=== PATIENT | female | born 1995 | race Caucasian/White ===

== ENCOUNTER 2021-01-10 05:01 | Inpatient (IN) | payer BC, MEDICAID ==
[2021-01-10] VITALS (47 sets, daily range): BP systolic 112–152; BP diastolic 71–101
[~2021-01-10] VITALS: Ht 165.1 cm; Wt 85.2 kg
--- NOTE | 2021-01-10 07:38 | History & Physical ---
History and Physical Date Seen by Provider: Jan 10, 2021 Time Seen by Provider: 07:36 This patient is a 25-year-old 3 para 0 aborta 2 female with gestational diabetes admitted at 38-2/7 weeks gestation for induction of labor. She has had no problems with this other than her diabetes to date. She denies rupture membranes or bleeding. Her GBS culture was negative. Allergies are none Medications are vitamins Medical social and surgical history is all per the antepartum record HEENT exam is normal Neck is supple no lymphadenopathy no thyromegaly Abdomen is gravid soft nontender nondistended Extremities show no clubbing cyanosis. There is no Homans' sign Pelvic exam is pending Assessment and plan 38+ week gestation with gestational diabetes admitted for induction of labor. We anticipate a vaginal delivery 38 weeks with gestational diabetes Allergies and Home Medications Patient Home Medication List Home Medication List Reviewed: Yes SHIRA COLE MD Jan 10, 2021 07:38
[2021-01-10] MEDS: D5 LR IV SOLUTION 1,000 ML IV SCH ×2 (08:30→16:24)
[2021-01-10] MEDS: OXYTOCIN PRE-MIX DRIP 500 ML IV SCH (08:30)
[2021-01-10] MEDS ORDERED: CITRIC ACID/SOB CIT (BICITRA) 30 ML UDC PO ONE (09:15)
[2021-01-10 09:19] LABS: BASOPHILS % (AUTO) 0 % (0-10); EOSINOPHILS # (AUTO) 0.1 10^3/uL (0.0-0.3); EOSINOPHILS % (AUTO) 1 % (0-10); HEMATOCRIT 38 % (35-52); HEMOGLOBIN 12.9 g/dL (11.5-16.0); LYMPHOCYTES # (AUTO) 1.5 10^3/uL (1.0-4.0); LYMPHOCYTES % (AUTO) 18 % (12-44); MEAN CORPUSCULAR HEMOGLOBIN 30 pg (25-34); MEAN CORPUSCULAR HGB CONC 34 g/dL (32-36); MEAN CORPUSCULAR VOLUME 87 fL (80-99); MEAN PLATELET VOLUME 10.4 fL (9.0-12.2); MONOCYTES # (AUTO) 0.7 10^3/uL (0.0-1.0); MONOCYTES % (AUTO) 9 % (0-12); NEUTROPHILS % (AUTO) 72 % (42-75); PLATELET COUNT 205 10^3/uL (130-400); WHITE BLOOD COUNT 8.4 10^3/uL (4.3-11.0)
[2021-01-11] VITALS (42 sets, daily range): BP systolic 96–152; BP diastolic 49–98
[2021-01-11] MEDS: D5 LR IV SOLUTION 1,000 ML IV SCH ×2 (01:05→08:30)
[2021-01-11] MEDS: OXYTOCIN PRE-MIX DRIP 500 ML IV SCH ×3 (06:03→19:47)
[2021-01-11] MEDS ORDERED: fentaNYL 2 mcg/ml BUPIVA 0.125 100 ML ONE (07:54)
[2021-01-11] MEDS ORDERED: fentaNYL INJ 100 MCG/2 ML AMP ONE ×2 (08:35→12:17)
[2021-01-11] MEDS ORDERED: BUPIVACAINE 0.25% 30 ML (SENSORCAINE) VIAL ONE (08:35)
--- NOTE | 2021-01-11 10:29 | Progress Note ---
Standard Progress Note Progress Notes/Assess & Plan Date Seen by a Provider: Jan 11, 2021 Time Seen by a Provider: 10:27 Progress/Assessment & Plan This patient is without complaint. She is on day 2 of a serial Pitocin induction of labor. She made some progress on Pitocin yesterday thinning out almost completely and showing good descent of the presenting part. After an hour at 40 milliunits/min of the Pitocin the Pitocin was halted in favor of resting through the night. Pitocin has been reinitiated this morning. Patient has experienced spontaneous rupture membranes. She is madi vigorously and now has an epidural Vital signs are stable. Patient is afebrile. monitor shows regular contractions and a normal heart rate pattern. Plan is for continued labor induction SHIRA COLE MD Jan 11, 2021 10:29
[2021-01-11] MEDS ORDERED: ONDANSETRON 4 MG/2 ML (SDV) Z0FRAN IV PRN (11:00)
[2021-01-11] MEDS ORDERED: METOCLOPRAMIDE INJ 10 MG/2 ML (REGLAN) IV PRN (11:00)
[2021-01-11] MEDS ORDERED: LACTATED RINGERS 1,000 ML IV SCH (11:00)
[2021-01-11] MEDS ORDERED: NALOXONE 0.4 MG/ML 1 ML (NARCAN) VIAL IV PRN ×2 (11:00)
[2021-01-11] MEDS ORDERED: diphenhydrAMINE 50 MG/ML INJ (BENADRYL) IV PRN (11:00)
[2021-01-11] MEDS ORDERED: EPIDURAL (fentaNYL 2 MCG/ML BUPIVA 0.125%)100 ML BAG EPI PRN (11:00)
[2021-01-11] MEDS ORDERED: FAMOTIDINE 20MG/2ML IV (PEPCID) ONE (11:39)
[2021-01-11] MEDS ORDERED: CITRIC ACID/SOB CIT (BICITRA) 30 ML UDC ONE (11:39)
--- NOTE | 2021-01-11 11:40 | Progress Note ---
Standard Progress Note Progress Notes/Assess & Plan Date Seen by a Provider: Jan 11, 2021 Time Seen by a Provider: 11:40 Progress/Assessment & Plan This patient is without complaint. She is on day 2 of a serial Pitocin induction of labor. She made some progress on Pitocin yesterday thinning out almost completely and showing good descent of the presenting part. After an hour at 40 milliunits/min of the Pitocin the Pitocin was halted in favor of resting through the night. Pitocin has been reinitiated this morning. Patient has experienced spontaneous rupture membranes. She is madi vigorously and now has an epidural Vital signs are stable. Patient is afebrile. monitor shows regular contractions and a normal heart rate pattern. Plan is for continued labor induction January 11, 2021 Patient is comfortable with epidural however she has had recurrent late decelerations. Pitocin has been halted and the monitor strip has improved. She has had 2 episodes of heart rate deceleration today already we have stopped the Pitocin and would favor proceeding with delivery. The patient agrees. SHIRA COLE MD Jan 11, 2021 11:40
[2021-01-11] MEDS ORDERED: ceFAZolin 2 GM IV Premixed 50 ML ONE (11:41)
[2021-01-11] MEDS ORDERED: metroNIDAZOLE 500MG/100ML IVPB 100 ML ONE (11:41)
[2021-01-11] MEDS ORDERED: ceFAZolin INJECTION 2,000 MG in WATER (STERILE) FOR INJECTION 10 ML IV NR (11:45)
[2021-01-11] MEDS ORDERED: metroNIDAZOLE 500MG/100ML IVPB 100 ML IV NR (11:45)
[2021-01-11] MEDS ORDERED: OXYC-556 PO (11:50)
[2021-01-11] MEDS ORDERED: DOCU-143 PO (11:50)
[2021-01-11] MEDS ORDERED: IBUP-1780 PO (11:50)
--- NOTE | 2021-01-11 11:52 | Discharge Inst-Surgical ---
Discharge Inst-Surgical Depart Medication/Instructions New, Converted or Re-Newed RX: RX on Chart Consults/Follow Up Patient Instructions: As directed Orders & Referrals Follow Up Appt: RTC On Wednesday, January 17, 2021 at 9:30 AM for incision check. Call to make follow up appt. for patient in 4 weeks. Wound Care: Remove trina, apply benzoin and steri strips. Activity Per routine post instructions. Please call in RX to patient pharmacy. Diet as tolerated Patient may shower or tub bathe as desired. Continue home meds Activity Activity as Tolerated: No Diet Discharge Diet: No Restrictions SHIRA COLE MD Jan 11, 2021 11:51
[2021-01-11] MEDS ORDERED: CITRIC ACID/SOB CIT (BICITRA) 30 ML UDC PO ONE (12:00)
[2021-01-11] MEDS ORDERED: LACTATED RINGERS 1,000 ML IV PRN ×2 (12:00)
[2021-01-11] MEDS ORDERED: METOCLOPRAMIDE INJ 10 MG/2 ML (REGLAN) IV ONE (12:00)
[2021-01-11] MEDS ORDERED: BUPIVACAINE 0.5% 30 ML (SENSORCAINE) VIAL ONE (12:17)
[2021-01-11] MEDS ORDERED: LIDOCAINE PF 2% 5 ML (XYLOCAINE) VIAL ONE (12:17)
[2021-01-11] MEDS ORDERED: OXYTOCIN PRE-MIX DRIP 1,000 ML IV ONE (12:24)
[2021-01-11] MEDS ORDERED: MEASLES,MUMPS,RUBELLA 1 EA INJ SC ONE (15:30)
[2021-01-11] MEDS ORDERED: ONDANSETRON 4 MG/2 ML (SDV) Z0FRAN IVP PRN (15:30)
[2021-01-11] MEDS ORDERED: fentaNYL INJ 100 MCG/2 ML AMP IVP PRN (15:30)
[2021-01-11] MEDS ORDERED: TETANUS,DIPTH,PERTUSS P/F (BOOSTRIX) 0.5 ML VIAL IM ONE (15:30)
[2021-01-11] MEDS ORDERED: D5 LR IV SOLUTION 1,000 ML IV SCH (15:30)
[2021-01-11] MEDS: KETOROLAC 30 MG/ML VIAL IVP PRN ×2 (16:11→21:52)
[2021-01-11] MEDS: oxyCODONE/APAP 10/325MG (PERCOCET 10) TABLET PO PRN ×2 (16:54→23:07)
--- NOTE | 2021-01-11 17:40 | OPERATIVE REPORT ---
DATE OF SERVICE: 01/11/2021 PREOPERATIVE DIAGNOSES: 1. A 38-week with gestational diabetes in labor with nonreassuring heart rate pattern and failure to progress. 2. Pigmented lesion on the right mons. POSTOPERATIVE DIAGNOSES: 1. A 38-week with gestational diabetes in labor with nonreassuring heart rate pattern and failure to progress. 2. Pigmented lesion on the right mons. OPERATIVE PROCEDURES: 1. Primary low transverse delivery of a viable female with Apgars of 9 and 9 at 1 and 5 minutes respectively, weight of 7 pounds 5 ounces. Cord blood pH of 7.29 and a time of 12:40. 2. Removal of a pigmented lesion. OPERATIVE DESCRIPTION: With the patient in the supine position under satisfactory epidural analgesia, she was prepped and draped in the usual fashion for abdominal surgery. A Justice catheter had been placed in the urinary bladder during labor that was left to dependent drainage. A Pfannenstiel incision was made through the skin with a scalpel and the abdomen entered in the usual manner. Bladder retractor placed in position, clean scalpel was used to make a 4 cm hysterotomy incision transversely across the lower uterine segment that was extended by blunt dissection as well. A small amount of clear amniotic fluid was released. There were some fragments of shakira meconium as well. A vigorous viable female was delivered via the uterine incision in the usual manner. The had Apgars and stats as noted above. The was bulb suctioned on delivery of the head and again on completion of delivery. Umbilical cord was doubly clamped and cut and the passed to the pediatric nurse in attendance for delivery. Cord bloods were obtained. The placenta delivered spontaneously. It was normal with a 3-vessel cord. There was particulate meconium present with the membranes. The uterus was exteriorized and interior wiped clean with a wet laparotomy sponge. Uterine incision was closed with running locked suture of 2-0 Vicryl. Hemostasis was complete. The uterus was returned to the abdominal cavity. All blood clot and debris removed from the abdominal cavity. With sponge and needle counts correct and hemostasis assured, the anterior parietal peritoneum was closed with running suture of 2-0 Vicryl. Rectus muscles were closed with that suture as well. The rectus fascia was closed with 2-0 Vicryl, subcutaneous tissue was closed with 2-0 Vicryl and the skin was stapled. There was a pigmented lesion on the right mons on the margin of the Pfannenstiel incision. This lesion was removed sharply with Metzenbaum scissors and sent to pathology for permanent section after discussing the nature and appearance of this lesion with the patient. The patient tolerated the procedure well and was transferred to recovery room in a stable condition. The infant had remained in the warmer near the bedside. Job ID: [id number] DocumentID: [id number] Dictated Date: 01/11/2021 13:07:30 Adapted Physical Education Aide Date: 01/11/2021 17:39:43 Dictated By: SHIRA COLE MD
[2021-01-11] MEDS ORDERED: DOCUSATE SODIUM 100 MG (COLACE) CAP PO SCH (21:00)
[2021-01-11] MEDS: DOCUSATE SODIUM 100 MG (COLACE) CAP PO SCH (21:52)
[2021-01-12 02:53] VITALS: BP 131/70
[2021-01-12] MEDS: KETOROLAC 30 MG/ML VIAL IVP PRN (03:56)
--- NOTE | 2021-01-12 07:44 | Progress Note ---
Standard Progress Note Progress Notes/Assess & Plan Date Seen by a Provider: Jan 12, 2021 Time Seen by a Provider: 07:43 Progress/Assessment & Plan This patient is without complaint. She is on day 2 of a serial Pitocin induction of labor. She made some progress on Pitocin yesterday thinning out almost completely and showing good descent of the presenting part. After an hour at 40 milliunits/min of the Pitocin the Pitocin was halted in favor of resting through the night. Pitocin has been reinitiated this morning. Patient has experienced spontaneous rupture membranes. She is madi vigorously and now has an epidural Vital signs are stable. Patient is afebrile. monitor shows regular contractions and a normal heart rate pattern. Plan is for continued labor induction January 11, 2021 Patient is comfortable with epidural however she has had recurrent late decelerations. Pitocin has been halted and the monitor strip has improved. She has had 2 episodes of heart rate deceleration today already we have stopped the Pitocin and would favor proceeding with delivery. The patient agrees. January 12, 2021 Patient is without complaint. She is ambulating, voiding, tolerating oral intake well and has good pain control. Patient denies chest pain, denies shortness of breath, denies headache, and denies nausea and vomiting. Vital Signs 01/11/21 01/11/21 01/12/21 12:20 17:10 02:53 Temp 37.0 Pulse 91 Resp 18 B/P (MAP) 131/70 (90) Pulse Ox 98 O2 Delivery Room Air O2 Flow Rate 10.00 Vital signs are stable. Patient is afebrile. The abdomen is benign. The surgical incision is clean dry and intact. Extremities show no clubbing cyanosis. There is no Homans' sign. Assessment and plan Postoperative day #1 status post primary delivery at 38 weeks gestation. Patient is doing well and will have routine convalescent care SHIRA COLE MD Jan 12, 2021 07:44
[2021-01-12 07:45] VITALS: BP 124/73
[2021-01-12] MEDS: DOCUSATE SODIUM 100 MG (COLACE) CAP PO SCH ×2 (08:23→20:22)
[2021-01-12] MEDS: oxyCODONE/APAP 10/325MG (PERCOCET 10) TABLET PO PRN ×3 (08:23→20:21)
[2021-01-12] MEDS ORDERED: IBUPROFEN 800 MG (MOTRIN) TAB PO ONE ×2 (11:44→19:43)
--- NOTE | 2021-01-12 11:50 | Anesthesia-Regional Post-Op ---
Regional Patient Condition Mental Status: Alert, Oriented x3 Circulation: Same as Pre-Op Headache: Absent Sensation: Full Recovery Motor Block: Absent Post Op Complications Complications None Follow Up Care/Instructions Patient Instructions None needed. Anesthesia/Patient Condition Patient is doing well, no complaints, stable vital signs, no apparent adverse anesthesia problems. No complications reported per nursing. JORDAN WYATT CRNA Jan 12, 2021 11:50
[2021-01-12 11:51] VITALS: BP 119/74
[2021-01-12 19:58] VITALS: BP 124/79
[2021-01-12 20:25] VITALS: BP 121/71
[2021-01-13] MEDS ORDERED: IBUPROFEN 800 MG (MOTRIN) TAB PO ONE ×2 (01:57→08:01)
[2021-01-13 02:01] VITALS: BP 130/74
[2021-01-13] MEDS ORDERED: IBUPROFEN 800 MG (MOTRIN) TAB PO SCH (08:00)
[2021-01-13] MEDS: oxyCODONE/APAP 10/325MG (PERCOCET 10) TABLET PO PRN (08:08)
[2021-01-13] MEDS: DOCUSATE SODIUM 100 MG (COLACE) CAP PO SCH (08:08)
[2021-01-13 08:11] VITALS: BP 126/81
--- NOTE | 2021-01-13 08:25 | Progress Note ---
Standard Progress Note Progress Notes/Assess & Plan Date Seen by a Provider: Jan 13, 2021 Time Seen by a Provider: 08:24 Progress/Assessment & Plan This patient is without complaint. She is on day 2 of a serial Pitocin induction of labor. She made some progress on Pitocin yesterday thinning out almost completely and showing good descent of the presenting part. After an hour at 40 milliunits/min of the Pitocin the Pitocin was halted in favor of resting through the night. Pitocin has been reinitiated this morning. Patient has experienced spontaneous rupture membranes. She is madi vigorously and now has an epidural Vital signs are stable. Patient is afebrile. monitor shows regular contractions and a normal heart rate pattern. Plan is for continued labor induction January 11, 2021 Patient is comfortable with epidural however she has had recurrent late decelerations. Pitocin has been halted and the monitor strip has improved. She has had 2 episodes of heart rate deceleration today already we have stopped the Pitocin and would favor proceeding with delivery. The patient agrees. January 12, 2021 Patient is without complaint. She is ambulating, voiding, tolerating oral intake well and has good pain control. Patient denies chest pain, denies shortness of breath, denies headache, and denies nausea and vomiting. Vital Signs 01/11/21 01/11/21 01/12/21 12:20 17:10 02:53 Temp 37.0 Pulse 91 Resp 18 B/P (MAP) 131/70 (90) Pulse Ox 98 O2 Delivery Room Air O2 Flow Rate 10.00 Vital signs are stable. Patient is afebrile. The abdomen is benign. The surgical incision is clean dry and intact. Extremities show no clubbing cyanosis. There is no Homans' sign. Assessment and plan Postoperative day #1 status post primary delivery at 38 weeks gestation. Patient is doing well and will have routine convalescent care January 13, 2021 See discharge summary Final Diagnosis 38-week primary delivery SHIRA COLE MD Jan 13, 2021 08:25
--- NOTE | 2021-01-13 08:28 | Discharge Summary ---
Discharge Summary 38-week primary delivery This patient is a 25-year-old 1 female who was admitted on January 10, 2021 for induction of labor due to gestational diabetes. She was 38+ weeks gestation. Patient had been uncomplicated other than her gestational diabetes which was type A1. Her group B strep culture had been negative. Patient was admitted on January 10, 2021 and started on Pitocin. She did labor somewhat successfully through the day showing good descent and good thinning of the cervix although there was no significant dilation. In the evening that day the Pitocin was halted in favor resting through the night with plans for resuming Pitocin on the following morning for serial induction On January 11, 2021 patient continued on day 2 of the serial Pitocin induction she did dilate to about 2 cm then.100% but after a couple episodes of bradycardia and then with recurrent late decelerations decision was made to proceed with delivery. Patient was taken to the operating room where under epidural analgesia primary was performed. The patient recovered uneventfully. On [place] Day January 12, 2021 which was postoperative day #1 the patient was ambulating, voiding, tolerating oral intake well and had good pain control. She had routine care through the day. Now on postoperative day #2 patient again is ambulating, voiding, tolerating oral intake well has good pain control. She denies chest pain, denies shortness of breath, denies nausea vomiting, and denies headache. Patient is requesting discharge home and is determined she can be discharged home. Principal diagnosis this hospitalization is term/38-week primary delivery Secondary diagnoses are gestational diabetes Nonreassuring heart rate pattern Operation procedures include Pitocin induction of labor Epidural labor analgesia Primary delivery under epidural analgesia Patient was given appropriate discharge instructions verbally and in writing and a copy was placed in the chart. Discharge medications are Percocet Motrin and SHIRA Schaeffer MD Jan 13, 2021 08:28
[2021-01-17] MEDS ORDERED: OXYC-556 PO ×2 (15:42→16:13)
== END 2021-01-13 11:45 | disposition home or self-care (01) | DRG 788 ==
LOC: LDRP 07:03
PROVIDERS: ADMIT Obstetrics & Gynecology; ATTEND Obstetrics & Gynecology
PROC: 10D00Z1 Extraction of Products of Conception, Low, Open Approach (ICD-10-PCS; principal; 2021-01-11 12:29)
PROC: 0HBAXZZ Excision of Inguinal Skin, External Approach (ICD-10-PCS; 2021-01-11 12:29)
DX: O24.429 Gestational diabetes mellitus in childbirth, unspecified control (principal); Z3A.38 38 weeks gestation of pregnancy; Z37.0 Single live birth; O76 Abnormality in fetal heart rate and rhythm complicating labor and delivery; N90.89 Other specified noninflammatory disorders of vulva and perineum; O75.89 Other specified complications of labor and delivery
CPT/HCPCS: 36415; 82947; 85025; 94664